=== PATIENT | male | born 1940 | race Caucasian/White ===

== ENCOUNTER → 2019-06-06 | Outpatient (CLI) | payer MEDICARE, OTHER | END | disposition home or self-care (01) | LOC: PLD 11:34 → LAB SHORT 11:34 | DX: L57.0 Actinic keratosis (principal) | CPT/HCPCS: 88305 ==

== ENCOUNTER → 2020-11-10 | Outpatient (CLI) | payer MEDICARE, OTHER ==
[2020-11-10 10:46] LABS: Source, Urine Clean Catch
[2020-11-10 13:10] LABS: Bacteria Not Seen /hpf; Mucus Light (0-Heavy); Red Blood Cells, Urine TNTC /hpf (0-2); Squamous Epithelial Cells Not Seen /hpf (Few); White Blood Cells, Urine 0-2 /hpf (0-5)
== END | disposition home or self-care (01) ==
LOC: LAB 10:44 → LAB SHORT 10:44
PROVIDERS: Family Medicine
DX: R31.9 Hematuria, unspecified (principal)
CPT/HCPCS: 81015

== ENCOUNTER 2021-03-15 10:18 | Day surgery (SDC) | payer MEDICARE, OTHER ==
[~2021-03-15] VITALS: Ht 170.2 cm; Wt 75.0 kg
[~2021-03-15 10:18] MED LIST: ATOR10 PO; C COMPLEX1000 M1 PO; CENTRUM SILVER1 EAC2 PO; Flomax0.4 MG PO; INDO50 PO; LEVSOD100 PO; MAGNESIUM OXID500 MG PO; Vitamin D1000 UNI1 PO
--- NOTE | 2021-03-15 17:20 | NUR ---
PT TO AND FROM X-RAY PER W/C. IV ANCEF INFUSING AT THIS TIME.
--- NOTE | 2021-03-15 17:44 | NUR ---
DISCHARGE GONE OVER WITH PT AND . SALINE LOCK REMOVED WITH CATHETER INTACT. LEFT ARM PLACED IN SLING AFTER ASSIST GETTING DRESSED. PT TO PRIVATE VEHICLE PER W/C WITH ASSIST OF ONE.
== END 2021-03-15 17:45 | disposition home or self-care (01) ==
LOC: MHTC 10:18
DX: I49.5 Sick sinus syndrome (principal); G47.33 Obstructive sleep apnea (adult) (pediatric); E78.5 Hyperlipidemia, unspecified; E03.9 Hypothyroidism, unspecified; Z87.891 Personal history of nicotine dependence
CPT/HCPCS: 33208; 71046; 99152; 99153; C1785; C1898; J0461; J0690; J1580; J1644; J2250; J3010; J7040